=== PATIENT | male | born 1950 | race Caucasian/White ===

== ENCOUNTER → 2022-11-12 | Day surgery (SDC) | payer MEDICARE ==
[2022-11-09 10:35] LABS: BASOPHILS % 0.2 % (0.0-1.0); EOSINOPHILS % 0.2 % (0.0-6.0); HEMATOCRIT 26.9 % (38.2-49.6); HEMOGLOBIN 7.3 g/dL (14.0-18.0); LYMPHOCYTES # (AUTO) 1.1 (1.0-3.2); MEAN CORPUSCULAR HEMOGLOBIN 24.4 pg (28-32); MEAN CORPUSCULAR HGB CONC 27.1 g/dL (31-35); MONOCYTES # (AUTO) 0.5 (0.2-0.8); MONOCYTES % 11.5 % (4.4-11.3); NEUTROPHILS # (AUTO) 2.3 (2.1-6.9); NEUTROPHILS % 53.9 % (38.7-80.0); PLATELET COUNT 250 x10e3/uL (140-360); RED BLOOD COUNT 2.99 x10e6/uL (4.3-5.7); RED CELL DISTRIBUTION WIDTH 18.5 % (11.7-14.4)
[2022-11-09 10:43] LABS: INR 1.4; PROTHROMBIN TIME 17.7 seconds (11.9-14.5)
[2022-11-09 10:45] LABS: PARTIAL THROMBOPLASTIN TIME 49.4 seconds (23.8-35.5)
[2022-11-09 10:53] LABS: ALBUMIN 1.7 g/dL (3.5-5.0); ALBUMIN/GLOBULIN RATIO 0.3 (0.8-2.0); ANION GAP 16.3 mmol/L (8-16); CALCIUM 9.2 mg/dL (8.4-10.2); CREATININE, SERUM 2.35 mg/dL (0.72-1.25); POTASSIUM 5.3 mmol/L (3.5-5.1)
[~2022-11-12] MED LIST: AMOX TR-K CLV1 EAC2 PO; ASPIR-TRIN325 MG PO; ASPIRIN81 MG PO; AZITHROMYCIN250 MG PO; BELATACEPT IV; BENTYL20 MG PO; CALCIUM CARBON400 MG PO; CARDURA2 MG PO; COLACE100 M1 PO; COQ-10100 MG PO; COREG3.125 MG PO; CRESTOR40 MG PO; CYCLOBENZAPRINE10 MG PO; DEXILANT60 MG PO; ENVARSUS XR0.75 MG PO; EPHEDRINE SULFATE INJ 50 MG/ML VIAL ONE; ETOMIDATE 2 MG/ML 10 ML INJ IV ONE; FAMOTIDINE20 MG PO; FENTANYL CITRATE/PF 100MCG/2 ML INJ ONE; FLONASE ALLERG9.9 ML INH; FUROSEMIDE40 MG PO; HYDRALAZINE HCL50 MG PO; HYDROCHLOROTHIA25 MG PO; HYDROCODON-ACE1 EAC9 PO; IPRATROPIU0.2 MG/1 M NEB; LACTATED RINGER'S 1,000 ML ONE; LASIX20 MG PO; LIDOCAINE HCL 2% LOCAL INJ 5 ML SDV VIAL INJ ONE; LORATADINE10 MG PO; METOPROLOL TART25 MG PO; MIDAZOLAM HCL 2 MG/2 ML VIAL ONE; MIRTAZAPINE15 MG PO; MONTELUKAST SOD10 MG PO; MULTIVITAMINS1 EAC6 PO; NEBUPENT300 MG NEB; NEXIUM20 MG PO; NEXIUM40 MG PO; ONDANSETRON HCL INJ 2MG/ML 2ML 2 MG/ML VIAL ONE; PERIDEX473 M1 PO; PLAVIX75 MG PO; POVIDONE IODINE 0.05% 0.05 % ML PO ONE; PREDNISONE10 MG PO; PRILOSEC40 MG PO; PROPOFOL IV EMULSION 10 MG/ML 20 ML VIAL ONE; PROTONIX20 MG PO; SODIUM CHLORIDE4 ML NEB; ULTRAM 50MG50 MG PO; VASOTEC5 MG PO; VITAMIN C500 MG PO; VITAMIN D350 MCG PO; ZANTAC150 MG PO
[2022-11-12 10:25] VITALS: BP 120/57
== END | disposition home or self-care (01) ==
LOC: OR 06:44
PROVIDERS: ATTEND Surgery
DX: K29.00 Acute gastritis without bleeding (principal); D12.0 Benign neoplasm of cecum; D12.2 Benign neoplasm of ascending colon; D12.5 Benign neoplasm of sigmoid colon; K29.50 Unspecified chronic gastritis without bleeding; K57.30 Diverticulosis of large intestine without perforation or abscess without bleeding; D50.9 Iron deficiency anemia, unspecified; I10 Essential (primary) hypertension; I48.91 Unspecified atrial fibrillation; J84.10 Pulmonary fibrosis, unspecified; Z01.810 Encounter for preprocedural cardiovascular examination; Z01.812 Encounter for preprocedural laboratory examination; Z01.818 Encounter for other preprocedural examination; Z79.82 Long term (current) use of aspirin; Z79.899 Other long term (current) drug therapy; Z98.890 Other specified postprocedural states
CPT/HCPCS: 36415 ×2; 43239; 45380; 45385; 71046; 80053; 84132; 85025; 85610; 85730; 88305; 88342; 93005; J2001; J2250; J2405; J2704; J3010; J7121; 45378; 88312